=== PATIENT | female | born 1945 | race Caucasian/White ===

== ENCOUNTER 2019-02-18 15:25 | Outpatient (CLI) | payer MEDICARE ==
--- NOTE | 2019-02-19 21:25 | EKG ---
Test Reason : Blood Pressure : / mmHG Vent. Rate : 054 BPM Atrial Rate : 054 BPM P-R Int : 160 ms QRS Dur : 112 ms QT Int : 458 ms P-R-T Axes : 069 -29 066 degrees QTc Int : 434 ms Sinus bradycardia Minimal voltage criteria for LVH, may be normal variant Borderline ECG When compared with ECG of 19-MAY-2014 15:18, Nonspecific T wave abnormality no longer evident in Inferior leads T wave inversion no longer evident in Anterolateral leads Confirmed by Rosy REECE ([id number]) on 02/19/2019 9:25:33 PM Referred By: JEFFRY Confirmed By:Rosy REECE
== END 2019-02-18 15:26 | disposition home or self-care (01) ==
LOC: LABBT 15:25
PROVIDERS: ATTEND Obstetrics & Gynecology
DX: Z01.818 Encounter for other preprocedural examination (principal); N90.7 Vulvar cyst
CPT/HCPCS: 93005; 93010

== ENCOUNTER 2019-02-23 09:51 | Day surgery (SDC) | payer MEDICARE ==
[2019-02-18 15:39] VITALS: BMI 29.4
[2019-02-18 16:44] LABS: Hemoglobin 11.9 g/dL (12.0-16.0); Mean Corpuscular Hemoglobin 27.6 pg (27.0-31.0); Mean Corpuscular Volume 88.8 fL (78.0-98.0); Mean Platelet Volume 8.9 fL (7.4-10.4); Platelet Count 179 thou/uL (130-400); RBC Distribution Width 12.9 % (11.5-14.5); Red Blood Cell (RBC) Count 4.33 mill/uL (4.20-5.40); White Blood Cell (WBC) Count 6.9 thou/uL (4.8-10.8)
--- NOTE | 2019-02-23 07:42 | HP ---
REASON FOR ADMISSION: Multiple right labial sebaceous cysts with history of pain and ulceration. SCHEDULED PROCEDURE: Partial vulvectomy. HISTORY OF PRESENT ILLNESS: Ms. White is a 73-year-old, G2, P2, status post hysterectomy, who presented on referral from Dr. Luis Felipe zepeda in January. She is active and rides horses and was having a problem with chronic pain, enlargement and ulceration of her right labia minora. On exam, she was noted to have multiple sebaceous cysts with swelling and hypertrophy associated with chronic irritation on the right. We discussed options for management including changing clothing and activities. The patient is very active in horseback rider and does not desire to make significant changes and desires to proceed with surgical reduction. CINDER PITMAN HISTORY: As noted. No history of STDs. 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 SURGICAL HISTORY: Significant for gastric bypass, total knees, cholecystectomy, left breast removal and reconstruction with breast cancer. ALLERGIES: NONE. MEDICATIONS: 1. Amlodipine. 2. . 3. Furosemide. 4. Hydralazine. 5. Isordil. 6. Lisinopril. 7. Pravastatin. SOCIAL HISTORY: Denies tobacco, alcohol, or IV drug use. FAMILY HISTORY: Noncontributory. REVIEW OF SYSTEMS: Noncontributory. PHYSICAL EXAMINATION: GENERAL: White female, 5 feet 5 inches, weight 178, BMI 29, blood pressure 120/74, pulse 61, respirations 18. HEENT: Within normal limits. LUNGS: Clear to auscultation bilaterally. HEART: Regular rate and rhythm. ABDOMEN: Soft and nontender without rebound or guarding. VULVA: The patient has no sores or erosions at this time. She does have tenderness, swelling, and hypertrophy of sebaceous cyst enlarging the right labia minora to approximately 2 times the size of the one on the left. Vaginally, there are no ulcers. Her cuff is well supported and bimanual exam is unremarkable. IMPRESSION: Right labial hypertrophy secondary to chronic irritation and sebaceous cyst without ulceration at this time. PLAN: We will proceed with the reduction of labioplasty/partial vulvectomy. The patient understands risks and benefits of procedure including bleeding, infection, wound breakdown, and recurrence of sebaceous cyst. We will administer appropriate antibiotic and DVT prophylaxis. Anticipate outpatient nature of surgery. Job ID: [id number]
[2019-02-23] MEDS ORDERED: Gabapentin 300 MG CAP ONE (10:19)
[2019-02-23] MEDS ORDERED: Famotidine/PF 20 mg/2ml Vial ONE (10:20)
[2019-02-23] MEDS ORDERED: PROPOFOL 200 MG/20 ML VIAL ONE (10:47)
[2019-02-23] MEDS ORDERED: Lidocaine 1% PF 5 ML VIAL ONE (10:47)
[2019-02-23] MEDS ORDERED: Ondansetron PF 4 MG/2 ML Vial ONE (10:47)
[2019-02-23] MEDS ORDERED: CeleCOXIB 100 MG CAP ONE (10:53)
[2019-02-23] MEDS ORDERED: Bupivacaine HCl 0.5%/Epinephrine 1:200,000/PF 30 ml Vial ONE (12:16)
[2019-02-23] MEDS ORDERED: Lidocaine 1% w/Epinephrine 1:100K 20 ML VIAL ONE (12:18)
[2019-02-23] MEDS ORDERED: Fentanyl 100 MCG/2 ML VIAL ONE ×2 (12:19→13:45)
[2019-02-23] MEDS ORDERED: Bacitracin Zinc Ointment 30 gm TUBE ONE (13:05)
[2019-02-23] MEDS ORDERED: HYDROcodone/Acetaminophen 5/325 mg Tablet ONE ×2 (14:36→15:54)
--- NOTE | 2019-02-24 08:34 | OP ---
DATE OF PROCEDURE: 02/23/2019 PREOPERATIVE DIAGNOSES: Hypertrophy with history of ulceration and sebaceous cyst of right labia minora. POSTOPERATIVE DIAGNOSES: Hypertrophy with history of ulceration and sebaceous cyst of right labia minora. PROCEDURE PERFORMED: Partial right vulvectomy. ANESTHESIA: Laryngeal mask airway. ANESTHESIOLOGIST: Hilton Alaniz CRNA. ESTIMATED BLOOD LOSS: Less than 10 mL. MEDICATIONS: 2 g Ancef preincision. DVT PROPHYLAXIS: SCDs. OPERATIVE FINDINGS: 1. Persistent hypertrophy of the right labia minora, approximately two times greater size than left labia minora. 2. Sebaceous cyst noted in the hypertrophied aspect of labia minora. 3. Hemostasis with good cosmetic result and reduction postoperatively. DISPOSITION: Recovery room in good condition. DESCRIPTION OF PROCEDURE: After obtaining appropriate informed consent, the patient was taken to the operating room, where LMA airway was achieved without difficulty. The patient was prepped and draped in dorsal lithotomy position in Christopher stirrups. Bladder was drained of clear urine. The labia were inspected and findings as noted in the operative findings were noted. The area for excision was marked with a skin marker and infiltrated at this level using approximately 5 mL of lidocaine with epinephrine 1%. Using a 15 blade, the area was excised in its entirety and sent for pathologic analysis. No persistent areas of sebaceous cyst were appreciated in the remaining tissue. The deep dermal layer was reapproximated using running continuous 3-0 Monocryl suture and then the skin was reapproximated using a 4-0 Monocryl subcuticular stitch. Good hemostasis was noted and bacitracin ointment was applied. The patient was awakened, extubated, and taken to recovery room in good condition. She will be followed up at [facility] as scheduled. Job ID: [id number]
== END 2019-02-23 16:20 | disposition home or self-care (01) ==
LOC: SDC 09:51
PROVIDERS: ATTEND Obstetrics & Gynecology
PROC: 0UBMXZZ Excision of Vulva, External Approach (ICD-10-PCS; principal; 2019-02-23)
DX: N90.7 Vulvar cyst (principal); N90.60 Unspecified hypertrophy of vulva; I10 Essential (primary) hypertension; D64.9 Anemia, unspecified; M19.90 Unspecified osteoarthritis, unspecified site; I25.2 Old myocardial infarction; Z79.899 Other long term (current) drug therapy
CPT/HCPCS: 85027; 86850; 86900; 86901; 88305; J0670; J0690; J2001; J2405; J2704; J3010; S0028

== ENCOUNTER 2020-10-28 10:44 | Emergency (ER) | payer MEDICARE ==
[2020-10-28] MEDS ORDERED: Fentanyl 100 MCG/2 ML VIAL ONE ×3 (11:09→15:08)
[2020-10-28 11:27] LABS: #Basophils 0.1 thou/uL (0.0-0.2); #Eosinphils 0.2 thou/uL (0.0-0.7); #Monocytes 0.7 thou/uL (0.11-0.59); #Neutrophils 4.5 thou/uL (1.40-6.50); %Basophils 1.8 % (0.0-1.0); %Eosinophils 3.3 % (0.0-10.0); %Lymphocytes 26.3 % (21.0-51.0); %Monocytes 8.9 % (0.0-10.0); %Neutrophils 59.8 % (42.0-75.0); Mean Corpuscular HGB CONC 31.9 g/dL (32.0-36.0); Mean Corpuscular Hemoglobin 28.4 pg (27.0-31.0); Mean Corpuscular Volume 88.9 fL (78.0-98.0); Mean Platelet Volume 8.3 fL (7.4-10.4); Platelet Count 203 thou/uL (130-400); RBC Distribution Width 13.7 % (11.5-14.5); Red Blood Cell (RBC) Count 4.21 mill/uL (4.20-5.40); White Blood Cell (WBC) Count 7.5 thou/uL (4.8-10.8)
[2020-10-28 11:34] LABS: INR-International Normal Ratio 1.1; PTT 31.1 sec (22.9-36.1); Prothrombin Time 14.6 sec (12.0-14.7)
[2020-10-28 11:47] LABS: ALT (SGPT) Less than 7 U/L (8-55); AST (SGOT) 22 U/L (5-34); Albumin 4.3 g/dL (3.4-4.8); Alkaline Phosphatase 102 U/L (40-110); Anion Gap 16 mmol/L (10-20); BUN (Urea Nitrogen) 24 mg/dL (9.8-20.1); Bilirubin, Total 0.4 mg/dL (0.2-1.2); Calc. Creatinine Clearance 0 mL/min (70-130); Calcium 10.3 mg/dL (7.8-10.44); Carbon Dioxide 21 mmol/L (23-31); Chloride 105 mmol/L (98-107); Glucose 112 mg/dL (83-110); Potassium 4.6 mmol/L (3.5-5.1); Protein, Total 7.3 g/dL (5.8-8.1); Sodium 137 mmol/L (136-145)
[2020-10-28] MEDS ORDERED: Ondansetron PF 4 MG/2 ML Vial ONE (11:53)
[2020-10-28] MEDS ORDERED: PROPOFOL 20 ML ONE (12:02)
[2020-10-28] MEDS ORDERED: Ketamine 50 MG/ML (10ML VIAL) ONE (12:02)
--- NOTE | 2020-10-28 12:05 | CT ---
CT Chest WO Con History: Fall Comparison: None. Findings: Mild scarring in the lung apices. There are also mild left basilar pleural-parenchymal scar ring. Left humeral neck fracture is present with mild impaction. Large left glenohumeral joint effusion wit h indwelling debris. Vessels of the pre of the right glenohumeral joint. Right rotator cuff insufficiency. The sternum and manubrium are intact. No clavicular fracture. Indwelling dorsal column stimulator. No acute thoracic spine fracture. Old right anterior second rib fracture. Old right anterior third rib fracture. Old right anterior fou rth rib fracture. Old right anterior fifth rib fracture. No acute right-sided rib fracture. Old injury to the right anterior inferior costochondral junctions. Old left anterior third rib fracture. Old left anterior fourth rib fracture. Old left posterior 11th rib fracture. No acute displaced left rib fracture. Postsurgical changes along the left anterior chest wall. High-grade vascular calcifications. Multiple hypodensities of both kidneys, incompletely evaluated, with left-sided hypodensities measuring greater than fluid attenuation. Aortic contour is nonaneurysmal. Heart size is enlarged. No significant pericardial effusion. Impression: 1. Fracture through the left humeral surgical neck. 2. No acute thoracic spine fracture. 3. Old bilateral rib fractures without acute displaced rib fracture appreciated. No pneumothorax. 4. Bilateral renal hypodensities for which nonemergent follow-up renal ultrasound recommended. 5. 4-5 mm solid nodule anterior segment right upper lobe axial image 14 along with tear of 5 mm nodul es within the right middle lobe are unchanged from 2004 and benign
--- NOTE | 2020-10-28 12:27 | RAD ---
LEFT SHOULDER 2 VIEWS: HISTORY: Fall. FINDINGS: The bones are demineralized. There is a humeral head and neck fracture present. The humerus is also at least inferiorly subluxed. IMPRESSION: Comminuted humeral head and neck fracture with anterior subluxation/dislocation. POS: GAURAV
--- NOTE | 2020-10-28 12:29 | CT ---
CT OF BRAIN PERFORMED WITHOUT CONTRAST ENHANCEMENT: HISTORY: Fall with head injury. FINDINGS: There is mild generalized ventricular and sulcal prominence. Decreased attenuation of the periventri cular white matter suggestive of some chronic white matter change. 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 No hemorrhage or mass effect. IMPRESSION: No acute intracranial abnormalities. POS: GAURAV
[2020-10-28] MEDS ORDERED: Lorazepam 2 MG/ML VIAL ONE (12:30)
--- NOTE | 2020-10-28 12:30 | CT ---
CT OF CERVICAL SPINE PERFORMED WITHOUT CONTRAST ENHANCEMENT: HISTORY: Fall with neck pain. FINDINGS: The bones appear demineralized. Vertebral bodies maintain normal height. There is moderate disk betsy rowing at the C6-7 level. The facets are in normal alignment. There is right-sided foraminal narrow ing which is moderate at the C3-4 level. Mild left-sided foraminal narrowing at C4-5 and bilateral f oraminal stenosis at C5-6, slightly greater on the right. The canal shows some mild narrowing at C6- 7. There is mild bilateral foraminal narrowing. There is no CT evidence for a fracture. The lung a pices are clear of infiltrates. IMPRESSION: No CT evidence of fracture of the cervical spine. POS: GAURAV
--- NOTE | 2020-10-28 12:43 | RAD ---
XR Shoulder Lt 2 View History: Postreduction Comparison: Radiograph same day Findings: Improved alignment of the humeral subluxation. The surgical neck fracture is again seen. Impression: Improved postreduction alignment.
[2020-10-28] MEDS ORDERED: Norepinephrine 8 MG/0.9% NS 250 ML ONE ×2 (15:39→16:06)
[2020-10-28] MEDS ORDERED: Norepinephrine 4 MG/4 ML VIAL ONE (16:06)
== END 2020-10-28 17:07 | disposition home or self-care (01) ==
LOC: ERS 10:44
DX: S06.0X9A Concussion with loss of consciousness of unspecified duration, initial encounter (principal); S42.212A Unspecified displaced fracture of surgical neck of left humerus, initial encounter for closed fracture; I10 Essential (primary) hypertension; W00.0XXA Fall on same level due to ice and snow, initial encounter; Z79.01 Long term (current) use of anticoagulants
CPT/HCPCS: 23605; 70450; 71250; 72125; 80053; 85025; 85610; 85730; 93005; 96374; 96375; 96376; 99152; J2060; J2405; J2704; J3010

== ENCOUNTER 2020-11-20 15:53 | Inpatient (IN) | payer MEDICARE ==
[2020-11-20] MEDS ORDERED: Ondansetron PF 4 MG/2 ML Vial ONE (16:43)
[2020-11-20 16:50] LABS: INR-International Normal Ratio 1.6; Prothrombin Time 19.5 sec (12.0-14.7)
[2020-11-20 16:51] LABS: PTT 29.7 sec (22.9-36.1)
[2020-11-20 16:53] LABS: #Basophils 0.1 thou/uL (0.0-0.2); #Lymphocytes 2.5 thou/uL (1.20-3.40); #Monocytes 0.5 thou/uL (0.11-0.59); #Neutrophils 9.8 thou/uL (1.40-6.50); %Basophils 0.5 % (0.0-1.0); %Eosinophils 0.2 % (0.0-10.0); %Lymphocytes 19.2 % (21.0-51.0); %Monocytes 3.7 % (0.0-10.0); %Neutrophils 76.5 % (42.0-75.0); Hemoglobin 4.2 g/dL (12.0-16.0); Mean Corpuscular HGB CONC 32.6 g/dL (32.0-36.0); Mean Corpuscular Hemoglobin 30.5 pg (27.0-31.0); Mean Corpuscular Volume 93.7 fL (78.0-98.0); Mean Platelet Volume 8.3 fL (7.4-10.4); Platelet Count 184 thou/uL (130-400); RBC Distribution Width 16.1 % (11.5-14.5); Red Blood Cell (RBC) Count 1.38 mill/uL (4.20-5.40); White Blood Cell (WBC) Count 12.8 thou/uL (4.8-10.8)
[2020-11-20] MEDS ORDERED: Fentanyl 100 MCG/2 ML VIAL ONE ×2 (16:57→17:40)
[2020-11-20 17:06] LABS: ALT (SGPT) Less than 7 U/L (8-55); AST (SGOT) 12 U/L (5-34); Albumin 2.8 g/dL (3.4-4.8); Alkaline Phosphatase 66 U/L (40-110); Anion Gap 11 mmol/L (10-20); BUN (Urea Nitrogen) 54 mg/dL (9.8-20.1); Bilirubin, Total 0.2 mg/dL (0.2-1.2); Calc. Creatinine Clearance 0 mL/min (70-130); Calcium 8.6 mg/dL (7.8-10.44); Carbon Dioxide 16 mmol/L (23-31); Chloride 117 mmol/L (98-107); Globulin 1.6 g/dL (2.4-3.5); Glucose 108 mg/dL (83-110); Lipase 27 U/L (8-78); Potassium 3.6 mmol/L (3.5-5.1); Protein, Total 4.4 g/dL (5.8-8.1); Sodium 140 mmol/L (136-145)
[2020-11-20] MEDS ORDERED: Lorazepam 2 MG/ML VIAL ONE (17:45)
[2020-11-20 17:52] LABS: Anisocytosis MODERATE=16-30 cells (100X) (0-5/hpf); Hypochromia MODERATE=16-30 cells (100X) (0-5/hpf); MDiff Complete? YES; Platelet Morphology Comment Appears Adequate; Reflex for Review?? YES
[2020-11-20 19:14] LABS: Bacteria/HPF None Seen HPF (None Seen); Bilirubin Negative (Negative); Blood, Urine Negative (Negative); Clarity Clear (Clear); Glucose, Urine (Dipstick) Normal (Negative); Ketone, Urine Negative (Negative); Leukocyte 250 Leu/uL (Negative); Nitrite Negative (Negative); Protein, Urine (Dipstick) Negative (Neg-Trace); RBC/HPF 0-3 HPF (0-3); Specific Gravity, Urine 1.017 (1.002-1.036); Squamous Epithelial 0-3 HPF (0-3); Urobilinogen Normal mg/dL (Less than 2); pH, Urine 5.5 (5.0-9.0)
[2020-11-20] MEDS ORDERED: Ondansetron PF 4 MG/2 ML Vial IVP PRN (20:49)
[2020-11-20] MEDS ORDERED: Ondansetron ODT 4 MG TAB PO PRN (20:49)
[2020-11-20] MEDS ORDERED: Morphine 2 MG/ML VIAL SLOW IVP SCH (21:30)
[2020-11-20] MEDS ORDERED: Pantoprazole 40 MG VIAL IVP SCH (21:45)
[2020-11-20] MEDS: Azithromycin 500 MG in Sodium Chloride 0.9% 250 ML 250 ML IVPB SCH (23:03)
[2020-11-20] MEDS: cefTRIAXone\\ROCEPHIN 1 GM in Sodium Chloride 0.9% 100 ML IVPB SCH (23:04)
[2020-11-20 23:21] LABS: Hemoglobin 6.6 g/dL (12.0-16.0)
[2020-11-21] MEDS: Acetaminophen 500 MG TAB PO PRN ×2 (00:14→08:32)
[2020-11-21] MEDS: Morphine 2 MG/ML VIAL SLOW IVP PRN ×4 (02:53→21:48)
[2020-11-21 06:13] LABS: #Eosinphils 0.2 thou/uL (0.0-0.7); #Lymphocytes 2.2 thou/uL (1.20-3.40); #Monocytes 0.7 thou/uL (0.11-0.59); #Neutrophils 7.1 thou/uL (1.40-6.50); %Basophils 0.4 % (0.0-1.0); %Eosinophils 1.9 % (0.0-10.0); %Lymphocytes 21.7 % (21.0-51.0); %Neutrophils 69.1 % (42.0-75.0); Mean Corpuscular HGB CONC 34.1 g/dL (32.0-36.0); Mean Corpuscular Hemoglobin 30.8 pg (27.0-31.0); Mean Corpuscular Volume 90.2 fL (78.0-98.0); Mean Platelet Volume 7.9 fL (7.4-10.4); Platelet Count 138 thou/uL (130-400); RBC Distribution Width 14.1 % (11.5-14.5); Red Blood Cell (RBC) Count 2.28 mill/uL (4.20-5.40); White Blood Cell (WBC) Count 10.2 thou/uL (4.8-10.8)
[2020-11-21 06:19] LABS: Anion Gap 6 mmol/L (10-20); BUN (Urea Nitrogen) 44 mg/dL (9.8-20.1); Calc. Creatinine Clearance 85 mL/min (70-130); Calcium 8.7 mg/dL (7.8-10.44); Carbon Dioxide 19 mmol/L (23-31); Chloride 120 mmol/L (98-107); Glucose 92 mg/dL (83-110); Potassium 3.4 mmol/L (3.5-5.1); Sodium 142 mmol/L (136-145)
[2020-11-21] MEDS ORDERED: Lidocaine 1% PF 5 ML VIAL ONE (08:41)
[2020-11-21] MEDS ORDERED: PROPOFOL 200 MG/20 ML VIAL ONE (08:41)
[2020-11-21 08:57] LABS: SARS-CoV-2 PCR by NAA Not Detected (NotDetected)
[2020-11-21] MEDS ORDERED: Pantoprazole 40 MG VIAL IVP SCH (09:00)
[2020-11-21] MEDS ORDERED: FLU VACC QS2020-21(65YR UP)/PF 240 MCG/0.7 ML SYRINGE IM ONE (09:00)
[2020-11-21] MEDS ORDERED: HYDROcodone/Acetaminophen 10/325 mg Tablet PO PRN (09:57)
[2020-11-21] MEDS: Pantoprazole 40 MG VIAL IVP SCH ×2 (10:15→21:48)
[2020-11-21] MEDS: Lidocaine 5% Patch TD SCH (10:15)
[2020-11-21 10:28] LABS: Hemoglobin 7.1 g/dL (12.0-16.0)
[2020-11-21] MEDS: hydrALAZINE 20 MG/ML VIAL SLOW IVP PRN ×2 (13:25→17:03)
[2020-11-21] MEDS ORDERED: Fentanyl 100 MCG/2 ML VIAL ONE (19:25)
[2020-11-21] MEDS ORDERED: Midazolam HCl 2 mg/2 ml Vial ONE (19:25)
[2020-11-21] MEDS ORDERED: Promethazine HCl 25 MG/ML VIAL SLOW IVP PRN (19:57)
[2020-11-21] MEDS ORDERED: Promethazine HCl 25 MG/ML VIAL IM PRN (19:57)
[2020-11-21] MEDS ORDERED: Ondansetron HCl/PF 4 MG/2 ML Vial IVP PRN (19:57)
[2020-11-21] MEDS ORDERED: Ondansetron PF 4 MG/2 ML Vial ONE (20:02)
[2020-11-21] MEDS: Lisinopril 20 MG TAB PO SCH (21:47)
[2020-11-21] MEDS: cloNIDine 0.1 MG TAB PO SCH (21:47)
[2020-11-21] MEDS: Flecainide 50 MG TAB PO SCH (21:47)
[2020-11-21] MEDS: cefTRIAXone\\ROCEPHIN 1 GM in Sodium Chloride 0.9% 100 ML IVPB SCH (21:48)
[2020-11-21] MEDS: Azithromycin 500 MG in Sodium Chloride 0.9% 250 ML 250 ML IVPB SCH (21:49)
[2020-11-21] MEDS ORDERED: ALPRAZolam 0.25 MG TAB PO SCH (22:15)
[2020-11-22] MEDS: Morphine 2 MG/ML VIAL SLOW IVP PRN ×3 (02:42→22:08)
[2020-11-22 05:33] LABS: Hemoglobin 6.6 g/dL (12.0-16.0); Mean Corpuscular HGB CONC 33.6 g/dL (32.0-36.0); Mean Corpuscular Hemoglobin 30.4 pg (27.0-31.0); Mean Corpuscular Volume 90.6 fL (78.0-98.0); Mean Platelet Volume 8.1 fL (7.4-10.4); Platelet Count 147 thou/uL (130-400); RBC Distribution Width 14.8 % (11.5-14.5); Red Blood Cell (RBC) Count 2.17 mill/uL (4.20-5.40); White Blood Cell (WBC) Count 18.4 thou/uL (4.8-10.8)
[2020-11-22 05:37] LABS: Anion Gap 11 mmol/L (10-20); BUN (Urea Nitrogen) 25 mg/dL (9.8-20.1); Calc. Creatinine Clearance 89 mL/min (70-130); Calcium 8.7 mg/dL (7.8-10.44); Carbon Dioxide 16 mmol/L (23-31); Chloride 119 mmol/L (98-107); Glucose 124 mg/dL (83-110); Potassium 3.6 mmol/L (3.5-5.1); Sodium 142 mmol/L (136-145)
[2020-11-22 06:07] LABS: Band 13 % (5-11); Lymphocytes 3 % (21-51); MDiff Complete? YES; Monocytes 2 % (0-10); Neutrophil 82 % (42-75)
[2020-11-22] MEDS ORDERED: CYANOCOBALAMIN 5000 MCG SL SCH (09:00)
[2020-11-22] MEDS ORDERED: [UNRECOGNIZED DRUG - OTHER] SL SCH (09:00)
[2020-11-22] MEDS: Lisinopril 20 MG TAB PO SCH ×2 (09:18→22:17)
[2020-11-22] MEDS: Calcium Carbonate 500 MG ChewTAB PO SCH (09:18)
[2020-11-22] MEDS: Flecainide 50 MG TAB PO SCH ×2 (09:18→22:18)
[2020-11-22] MEDS: Pantoprazole 40 MG VIAL IVP SCH ×2 (09:18→22:15)
[2020-11-22] MEDS: Cyanocobalamin (Vitamin B-12) 1,000 MCG TAB PO SCH (09:18)
[2020-11-22] MEDS: Lidocaine 5% Patch TD SCH (09:19)
[2020-11-22] MEDS: Acetaminophen 500 MG TAB PO PRN ×2 (11:14→17:20)
[2020-11-22] MEDS: hydrALAZINE 20 MG/ML VIAL SLOW IVP PRN (17:20)
[2020-11-22] MEDS ORDERED: Melatonin 3 MG TAB PO SCH (22:00)
[2020-11-22] MEDS: cefTRIAXone\\ROCEPHIN 1 GM in Sodium Chloride 0.9% 100 ML IVPB SCH (22:14)
[2020-11-22] MEDS ORDERED: diphenhydrAMINE 25 MG CAP PO SCH (22:15)
[2020-11-22] MEDS: cloNIDine 0.1 MG TAB PO SCH (22:17)
[2020-11-22] MEDS: Azithromycin 500 MG in Sodium Chloride 0.9% 250 ML 250 ML IVPB SCH (22:18)
[2020-11-23] MEDS: Acetaminophen 500 MG TAB PO PRN ×3 (02:52→21:18)
[2020-11-23] MEDS: Morphine 2 MG/ML VIAL SLOW IVP PRN ×3 (02:52→15:44)
[2020-11-23] MEDS: hydrALAZINE 20 MG/ML VIAL SLOW IVP PRN (03:06)
[2020-11-23 03:52] LABS: #Eosinphils 0.7 thou/uL (0.0-0.7); #Lymphocytes 1.1 thou/uL (1.20-3.40); #Monocytes 0.8 thou/uL (0.11-0.59); #Neutrophils 15.6 thou/uL (1.40-6.50); %Basophils 0.2 % (0.0-1.0); %Eosinophils 3.7 % (0.0-10.0); %Lymphocytes 5.9 % (21.0-51.0); %Monocytes 4.5 % (0.0-10.0); %Neutrophils 85.7 % (42.0-75.0); Mean Corpuscular HGB CONC 34.6 g/dL (32.0-36.0); Mean Corpuscular Volume 89.6 fL (78.0-98.0); Mean Platelet Volume 8.5 fL (7.4-10.4); Platelet Count 158 thou/uL (130-400); RBC Distribution Width 15.1 % (11.5-14.5); Red Blood Cell (RBC) Count 2.56 mill/uL (4.20-5.40); White Blood Cell (WBC) Count 18.2 thou/uL (4.8-10.8)
[2020-11-23 04:05] LABS: Anion Gap 12 mmol/L (10-20); BUN (Urea Nitrogen) 17 mg/dL (9.8-20.1); Calc. Creatinine Clearance 95 mL/min (70-130); Calcium 8.8 mg/dL (7.8-10.44); Carbon Dioxide 17 mmol/L (23-31); Chloride 113 mmol/L (98-107); Glucose 114 mg/dL (83-110); Potassium 3.4 mmol/L (3.5-5.1); Sodium 139 mmol/L (136-145)
[2020-11-23] MEDS: Calcium Carbonate 500 MG ChewTAB PO SCH (08:37)
[2020-11-23] MEDS: Flecainide 50 MG TAB PO SCH ×2 (08:37→21:20)
[2020-11-23] MEDS: Lisinopril 20 MG TAB PO SCH ×2 (08:37→21:19)
[2020-11-23] MEDS: Lidocaine 5% Patch TD SCH (08:38)
[2020-11-23] MEDS: Pantoprazole 40 MG VIAL IVP SCH ×2 (08:38→21:21)
[2020-11-23] MEDS ORDERED: Potassium Chloride 20 MEQ TAB PO SCH (09:45)
[2020-11-23] MEDS: HYDROcodone/Acetaminophen 10/325 mg Tablet PO PRN (21:17)
[2020-11-23] MEDS: cloNIDine 0.1 MG TAB PO SCH (21:19)
[2020-11-23] MEDS: cefTRIAXone\\ROCEPHIN 1 GM in Sodium Chloride 0.9% 100 ML IVPB SCH (21:20)
[2020-11-23] MEDS: Azithromycin 500 MG in Sodium Chloride 0.9% 250 ML 250 ML IVPB SCH (23:19)
[2020-11-24] MEDS ORDERED: Metoprolol Tartrate 5 MG/5 ML VIAL ONE (02:03)
[2020-11-24] MEDS ORDERED: Metoprolol Tartrate 5 MG/5 ML VIAL IVP PRN (02:08)
[2020-11-24] MEDS ORDERED: Metoprolol Tartrate 5 MG/5 ML VIAL IVP SCH (02:15)
[2020-11-24] MEDS ORDERED: Diltiazem HCl 125 MG, Admixture Fee 1 EACH in Sodium Chloride 0.9% 100 ML IVPB PRN (03:19)
[2020-11-24 03:32] LABS: #Basophils 0.1 thou/uL (0.0-0.2); #Eosinphils 0.7 thou/uL (0.0-0.7); #Lymphocytes 1.1 thou/uL (1.20-3.40); #Neutrophils 12.9 thou/uL (1.40-6.50); %Basophils 0.3 % (0.0-1.0); %Eosinophils 4.5 % (0.0-10.0); %Lymphocytes 7.1 % (21.0-51.0); %Monocytes 6.1 % (0.0-10.0); %Neutrophils 81.9 % (42.0-75.0); Hemoglobin 7.5 g/dL (12.0-16.0); Mean Corpuscular HGB CONC 33.8 g/dL (32.0-36.0); Mean Corpuscular Hemoglobin 31.1 pg (27.0-31.0); Platelet Count 167 thou/uL (130-400); Red Blood Cell (RBC) Count 2.41 mill/uL (4.20-5.40); White Blood Cell (WBC) Count 15.7 thou/uL (4.8-10.8)
[2020-11-24 03:54] LABS: Anion Gap 10 mmol/L (10-20); Anion Gap 9 mmol/L (10-20); BUN (Urea Nitrogen) 13 mg/dL (9.8-20.1); Calc. Creatinine Clearance 101 mL/min (70-130); Calcium 8.8 mg/dL (7.8-10.44); Calcium 8.9 mg/dL (7.8-10.44); Carbon Dioxide 21 mmol/L (23-31); Chloride 112 mmol/L (98-107); Glucose 101 mg/dL (83-110); Glucose 103 mg/dL (83-110); Magnesium 1.9 mg/dL (1.6-2.6); Potassium 3.8 mmol/L (3.5-5.1); Sodium 138 mmol/L (136-145); Sodium 139 mmol/L (136-145)
[2020-11-24 03:58] LABS: Troponin I 0.036 ng/mL (< 0.028)
[2020-11-24] MEDS: Morphine 2 MG/ML VIAL SLOW IVP PRN ×3 (04:31→20:03)
[2020-11-24] MEDS: Calcium Carbonate 500 MG ChewTAB PO SCH (08:50)
[2020-11-24] MEDS: Pantoprazole 40 MG VIAL IVP SCH ×2 (08:50→20:05)
[2020-11-24] MEDS: Lidocaine 5% Patch TD SCH (08:50)
[2020-11-24] MEDS: Flecainide 50 MG TAB PO SCH ×2 (08:51→20:05)
[2020-11-24] MEDS: Lisinopril 20 MG TAB PO SCH ×2 (08:51→20:05)
[2020-11-24] MEDS: Cyanocobalamin (Vitamin B-12) 1,000 MCG TAB PO SCH (09:42)
[2020-11-24] MEDS ORDERED: Furosemide 40 MG/4 ML VIAL SLOW IVP SCH (09:45)
[2020-11-24] MEDS: Atenolol 50 MG TAB PO SCH (09:55)
[2020-11-24] MEDS: HYDROcodone/Acetaminophen 10/325 mg Tablet PO PRN ×2 (12:02→23:25)
[2020-11-24] MEDS: Furosemide 40 MG/4 ML VIAL SLOW IVP SCH (15:19)
[2020-11-24] MEDS: cloNIDine 0.1 MG TAB PO SCH (20:05)
[2020-11-24] MEDS: cefTRIAXone\\ROCEPHIN 1 GM in Sodium Chloride 0.9% 100 ML IVPB SCH (22:01)
[2020-11-24] MEDS: Acetaminophen 500 MG TAB PO PRN (23:25)
[2020-11-24] MEDS: Azithromycin 500 MG in Sodium Chloride 0.9% 250 ML 250 ML IVPB SCH (23:26)
[2020-11-25] MEDS: Morphine 2 MG/ML VIAL SLOW IVP PRN ×3 (00:30→20:51)
[2020-11-25 04:38] LABS: #Basophils 0.1 thou/uL (0.0-0.2); #Eosinphils 0.7 thou/uL (0.0-0.7); #Lymphocytes 1.3 thou/uL (1.20-3.40); #Monocytes 0.8 thou/uL (0.11-0.59); #Neutrophils 9.7 thou/uL (1.40-6.50); %Basophils 0.4 % (0.0-1.0); %Eosinophils 5.8 % (0.0-10.0); %Lymphocytes 10.1 % (21.0-51.0); %Monocytes 6.2 % (0.0-10.0); %Neutrophils 77.5 % (42.0-75.0); Hemoglobin 7.1 g/dL (12.0-16.0); Mean Corpuscular HGB CONC 32.1 g/dL (32.0-36.0); Mean Corpuscular Volume 93.5 fL (78.0-98.0); Mean Platelet Volume 8.6 fL (7.4-10.4); Platelet Count 202 thou/uL (130-400); RBC Distribution Width 15.5 % (11.5-14.5); Red Blood Cell (RBC) Count 2.38 mill/uL (4.20-5.40); White Blood Cell (WBC) Count 12.5 thou/uL (4.8-10.8)
[2020-11-25 05:02] LABS: Anion Gap 9 mmol/L (10-20); BUN (Urea Nitrogen) 15 mg/dL (9.8-20.1); Calc. Creatinine Clearance 90 mL/min (70-130); Calcium 8.3 mg/dL (7.8-10.44); Carbon Dioxide 25 mmol/L (23-31); Chloride 107 mmol/L (98-107); Glucose 104 mg/dL (83-110); Magnesium 1.7 mg/dL (1.6-2.6); Potassium 3.5 mmol/L (3.5-5.1); Sodium 137 mmol/L (136-145)
[2020-11-25] MEDS: Furosemide 40 MG/4 ML VIAL SLOW IVP SCH ×2 (05:27→14:22)
[2020-11-25] MEDS: Flecainide 50 MG TAB PO SCH ×2 (09:41→20:58)
[2020-11-25] MEDS: Calcium Carbonate 500 MG ChewTAB PO SCH (09:41)
[2020-11-25] MEDS: Lisinopril 20 MG TAB PO SCH ×2 (09:41→21:09)
[2020-11-25] MEDS: Atenolol 50 MG TAB PO SCH (09:41)
[2020-11-25] MEDS: Lidocaine 5% Patch TD SCH (09:42)
[2020-11-25] MEDS: Pantoprazole 40 MG VIAL IVP SCH ×2 (09:42→20:51)
[2020-11-25] MEDS ORDERED: Bisacodyl 10 MG SUPP PR PRN (17:03)
[2020-11-25] MEDS: cloNIDine 0.1 MG TAB PO SCH (20:57)
[2020-11-25] MEDS: Cefdinir 300 MG CAP PO SCH (20:57)
[2020-11-25] MEDS: Senokot S 8.6-50 MG TAB PO SCH (20:57)
[2020-11-25] MEDS: Acetaminophen 500 MG TAB PO PRN (21:09)
[2020-11-26] MEDS: Morphine 2 MG/ML VIAL SLOW IVP PRN ×4 (01:14→21:21)
[2020-11-26] MEDS: Furosemide 40 MG/4 ML VIAL SLOW IVP SCH ×2 (06:50→15:35)
[2020-11-26 08:26] LABS: #Eosinphils 0.6 thou/uL (0.0-0.7); #Lymphocytes 1.1 thou/uL (1.20-3.40); #Neutrophils 7.5 thou/uL (1.40-6.50); %Basophils 0.5 % (0.0-1.0); %Eosinophils 5.6 % (0.0-10.0); %Lymphocytes 10.3 % (21.0-51.0); %Neutrophils 73.6 % (42.0-75.0); Hemoglobin 8.1 g/dL (12.0-16.0); Mean Corpuscular HGB CONC 32.1 g/dL (32.0-36.0); Mean Corpuscular Volume 93.2 fL (78.0-98.0); Mean Platelet Volume 8.2 fL (7.4-10.4); Platelet Count 265 thou/uL (130-400); RBC Distribution Width 14.7 % (11.5-14.5); White Blood Cell (WBC) Count 10.1 thou/uL (4.8-10.8)
[2020-11-26 08:49] LABS: Anion Gap 12 mmol/L (10-20); BUN (Urea Nitrogen) 14 mg/dL (9.8-20.1); Calc. Creatinine Clearance 93 mL/min (70-130); Calcium 8.8 mg/dL (7.8-10.44); Carbon Dioxide 27 mmol/L (23-31); Chloride 102 mmol/L (98-107); Glucose 104 mg/dL (83-110); Potassium 3.8 mmol/L (3.5-5.1); Sodium 137 mmol/L (136-145)
[2020-11-26] MEDS: Polyethylene Glycol 3350 17 GM Packet PO SCH (09:04)
[2020-11-26] MEDS: Senokot S 8.6-50 MG TAB PO SCH ×2 (09:04→21:33)
[2020-11-26] MEDS: Cefdinir 300 MG CAP PO SCH ×2 (09:06→21:33)
[2020-11-26] MEDS: Atenolol 50 MG TAB PO SCH (09:07)
[2020-11-26] MEDS: Flecainide 50 MG TAB PO SCH ×2 (09:08→21:33)
[2020-11-26] MEDS: Lisinopril 20 MG TAB PO SCH ×2 (09:08→21:33)
[2020-11-26] MEDS: Pantoprazole 40 MG VIAL IVP SCH ×2 (09:10→21:34)
[2020-11-26] MEDS: Lidocaine 5% Patch TD SCH (09:15)
[2020-11-26] MEDS: Calcium Carbonate 500 MG ChewTAB PO SCH (11:26)
[2020-11-26] MEDS: cloNIDine 0.1 MG TAB PO SCH (21:33)
[2020-11-26] MEDS: Acetaminophen 500 MG TAB PO PRN (21:33)
[2020-11-27] MEDS: Acetaminophen 500 MG TAB PO PRN ×2 (03:53→22:07)
[2020-11-27] MEDS: Morphine 2 MG/ML VIAL SLOW IVP PRN (03:57)
[2020-11-27] MEDS: Furosemide 40 MG/4 ML VIAL SLOW IVP SCH (06:16)
[2020-11-27] MEDS: Senokot S 8.6-50 MG TAB PO SCH ×2 (08:27→22:06)
[2020-11-27] MEDS: Cefdinir 300 MG CAP PO SCH ×2 (08:27→22:06)
[2020-11-27] MEDS: Polyethylene Glycol 3350 17 GM Packet PO SCH (08:27)
[2020-11-27] MEDS: Pantoprazole 40 MG VIAL IVP SCH (08:27)
[2020-11-27] MEDS: Flecainide 50 MG TAB PO SCH ×2 (08:28→22:06)
[2020-11-27] MEDS: Calcium Carbonate 500 MG ChewTAB PO SCH (08:28)
[2020-11-27] MEDS: Furosemide 40 MG TAB PO SCH (08:28)
[2020-11-27] MEDS: Cyanocobalamin (Vitamin B-12) 1,000 MCG TAB PO SCH (08:28)
[2020-11-27] MEDS: Lisinopril 20 MG TAB PO SCH ×2 (08:28→22:06)
[2020-11-27] MEDS: Atenolol 50 MG TAB PO SCH (08:28)
[2020-11-27] MEDS: Lidocaine 5% Patch TD SCH (08:29)
[2020-11-27 08:54] LABS: #Basophils 0.1 thou/uL (0.0-0.2); #Eosinphils 0.4 thou/uL (0.0-0.7); #Lymphocytes 1.1 thou/uL (1.20-3.40); #Neutrophils 5.7 thou/uL (1.40-6.50); %Basophils 0.7 % (0.0-1.0); %Eosinophils 5.2 % (0.0-10.0); %Lymphocytes 13.3 % (21.0-51.0); %Monocytes 11.9 % (0.0-10.0); %Neutrophils 68.9 % (42.0-75.0); Hemoglobin 8.2 g/dL (12.0-16.0); Mean Corpuscular HGB CONC 33.1 g/dL (32.0-36.0); Mean Corpuscular Volume 93.7 fL (78.0-98.0); Mean Platelet Volume 7.9 fL (7.4-10.4); Platelet Count 318 thou/uL (130-400); RBC Distribution Width 14.6 % (11.5-14.5); Red Blood Cell (RBC) Count 2.65 mill/uL (4.20-5.40); White Blood Cell (WBC) Count 8.3 thou/uL (4.8-10.8)
[2020-11-27 09:19] LABS: Anion Gap 15 mmol/L (10-20); BUN (Urea Nitrogen) 15 mg/dL (9.8-20.1); Calc. Creatinine Clearance 82 mL/min (70-130); Calcium 9.1 mg/dL (7.8-10.44); Carbon Dioxide 31 mmol/L (23-31); Chloride 97 mmol/L (98-107); Glucose 197 mg/dL (83-110); Potassium 3.5 mmol/L (3.5-5.1); Sodium 139 mmol/L (136-145)
[2020-11-27] MEDS: HYDROcodone/Acetaminophen 10/325 mg Tablet PO PRN ×2 (09:46→17:53)
[2020-11-27] MEDS: cloNIDine 0.1 MG TAB PO SCH (22:05)
[2020-11-27] MEDS: Pregabalin 25 MG CAP PO SCH (22:06)
[2020-11-28 01:34] LABS: #Basophils 0.1 thou/uL (0.0-0.2); #Eosinphils 0.4 thou/uL (0.0-0.7); #Lymphocytes 1.4 thou/uL (1.20-3.40); #Neutrophils 5.4 thou/uL (1.40-6.50); %Eosinophils 4.3 % (0.0-10.0); %Lymphocytes 17.4 % (21.0-51.0); %Monocytes 11.9 % (0.0-10.0); %Neutrophils 65.4 % (42.0-75.0); Hemoglobin 7.1 g/dL (12.0-16.0); Mean Corpuscular HGB CONC 32.2 g/dL (32.0-36.0); Mean Corpuscular Volume 93.1 fL (78.0-98.0); Mean Platelet Volume 7.4 fL (7.4-10.4); Platelet Count 327 thou/uL (130-400); RBC Distribution Width 14.6 % (11.5-14.5); Red Blood Cell (RBC) Count 2.38 mill/uL (4.20-5.40); White Blood Cell (WBC) Count 8.3 thou/uL (4.8-10.8)
[2020-11-28 01:41] LABS: Lactic Acid 0.6 mmol/L (0.5-2.2)
[2020-11-28 01:46] LABS: Anion Gap 11 mmol/L (10-20); BUN (Urea Nitrogen) 18 mg/dL (9.8-20.1); Calc. Creatinine Clearance 84 mL/min (70-130); Calcium 8.6 mg/dL (7.8-10.44); Carbon Dioxide 32 mmol/L (23-31); Chloride 96 mmol/L (98-107); Glucose 98 mg/dL (83-110); Magnesium 1.8 mg/dL (1.6-2.6); Potassium 3.4 mmol/L (3.5-5.1); Sodium 136 mmol/L (136-145); Uric Acid 9.3 mg/dL (2.6-6.0)
[2020-11-28] MEDS ORDERED: Ibuprofen 200 MG TAB PO SCH (02:45)
[2020-11-28] MEDS ORDERED: Magnesium 2 GM/50 ML 2 GM in Premix Bag 1 BAG IVPB SCH (02:45)
[2020-11-28] MEDS ORDERED: Potassium Chloride 20 MEQ TAB PO SCH (02:45)
[2020-11-28] MEDS: Morphine 2 MG/ML VIAL SLOW IVP PRN ×2 (03:42→14:39)
[2020-11-28] MEDS: Calcium Carbonate 500 MG ChewTAB PO SCH (08:15)
[2020-11-28] MEDS: Lisinopril 20 MG TAB PO SCH ×2 (08:16→20:25)
[2020-11-28] MEDS: Cefdinir 300 MG CAP PO SCH ×2 (08:16→20:24)
[2020-11-28] MEDS: Senokot S 8.6-50 MG TAB PO SCH ×2 (08:16→20:24)
[2020-11-28] MEDS: Flecainide 50 MG TAB PO SCH ×2 (08:17→20:24)
[2020-11-28] MEDS: Furosemide 40 MG TAB PO SCH (08:17)
[2020-11-28] MEDS: Pregabalin 25 MG CAP PO SCH ×2 (08:17→20:24)
[2020-11-28] MEDS: Atenolol 50 MG TAB PO SCH (08:17)
[2020-11-28] MEDS: Polyethylene Glycol 3350 17 GM Packet PO SCH (08:18)
[2020-11-28] MEDS: HYDROcodone/Acetaminophen 10/325 mg Tablet PO PRN ×2 (08:31→18:11)
[2020-11-28] MEDS: Lidocaine 5% Patch TD SCH (08:31)
[2020-11-28] MEDS ORDERED: Colchicine 0.6 MG TAB PO SCH (10:45)
[2020-11-28 16:39] LABS: Hemoglobin 7.6 g/dL (12.0-16.0)
[2020-11-28] MEDS: cloNIDine 0.1 MG TAB PO SCH (20:25)
[2020-11-28] MEDS ORDERED: GoLYTELY 4,000 ml Bottle PO SCH (20:45)
[2020-11-29] MEDS: Morphine 2 MG/ML VIAL SLOW IVP PRN (00:12)
[2020-11-29 06:23] LABS: #Basophils 0.1 thou/uL (0.0-0.2); #Eosinphils 0.3 thou/uL (0.0-0.7); #Lymphocytes 1.5 thou/uL (1.20-3.40); #Monocytes 0.9 thou/uL (0.11-0.59); #Neutrophils 4.7 thou/uL (1.40-6.50); %Basophils 0.8 % (0.0-1.0); %Eosinophils 3.7 % (0.0-10.0); %Lymphocytes 19.6 % (21.0-51.0); %Monocytes 12.3 % (0.0-10.0); %Neutrophils 63.6 % (42.0-75.0); Hemoglobin 7.3 g/dL (12.0-16.0); Mean Corpuscular HGB CONC 33.7 g/dL (32.0-36.0); Mean Corpuscular Hemoglobin 30.8 pg (27.0-31.0); Mean Corpuscular Volume 91.3 fL (78.0-98.0); Mean Platelet Volume 7.6 fL (7.4-10.4); Platelet Count 400 thou/uL (130-400); RBC Distribution Width 14.8 % (11.5-14.5); Red Blood Cell (RBC) Count 2.37 mill/uL (4.20-5.40); White Blood Cell (WBC) Count 7.4 thou/uL (4.8-10.8)
[2020-11-29 06:48] LABS: Anion Gap 13 mmol/L (10-20); BUN (Urea Nitrogen) 16 mg/dL (9.8-20.1); Calc. Creatinine Clearance 80 mL/min (70-130); Calcium 8.7 mg/dL (7.8-10.44); Carbon Dioxide 31 mmol/L (23-31); Chloride 94 mmol/L (98-107); Glucose 96 mg/dL (83-110); Potassium 4.4 mmol/L (3.5-5.1); Sodium 134 mmol/L (136-145)
[2020-11-29] MEDS ORDERED: PROPOFOL 200 MG/20 ML VIAL ONE (11:37)
[2020-11-29] MEDS: Polyethylene Glycol 3350 17 GM Packet PO SCH (12:53)
[2020-11-29] MEDS: Senokot S 8.6-50 MG TAB PO SCH ×2 (12:53→21:37)
[2020-11-29] MEDS: Cyanocobalamin (Vitamin B-12) 1,000 MCG TAB PO SCH (13:01)
[2020-11-29] MEDS: Colchicine 0.6 MG TAB PO SCH ×2 (13:01→21:24)
[2020-11-29] MEDS: Lisinopril 20 MG TAB PO SCH ×2 (13:02→21:25)
[2020-11-29] MEDS: Calcium Carbonate 500 MG ChewTAB PO SCH (13:03)
[2020-11-29] MEDS: Atenolol 50 MG TAB PO SCH (13:03)
[2020-11-29] MEDS: Cefdinir 300 MG CAP PO SCH ×2 (13:04→21:24)
[2020-11-29] MEDS: Pregabalin 25 MG CAP PO SCH ×2 (13:04→21:23)
[2020-11-29] MEDS: Lidocaine 5% Patch TD SCH (13:05)
[2020-11-29] MEDS: Flecainide 50 MG TAB PO SCH ×2 (13:05→21:25)
[2020-11-29] MEDS: Furosemide 40 MG TAB PO SCH (13:05)
[2020-11-29] MEDS: HYDROcodone/Acetaminophen 10/325 mg Tablet PO PRN ×2 (14:00→21:26)
[2020-11-29] MEDS: Acetaminophen 500 MG TAB PO PRN (17:43)
[2020-11-29] MEDS: cloNIDine 0.1 MG TAB PO SCH (21:25)
[2020-11-30] MEDS: Acetaminophen 500 MG TAB PO PRN (04:48)
[2020-11-30] MEDS: Furosemide 40 MG TAB PO SCH (06:36)
[2020-11-30 07:59] VITALS: BP 149/69; TEMP 97.7
[2020-11-30] MEDS: Pregabalin 25 MG CAP PO SCH (11:02)
[2020-11-30] MEDS: Cefdinir 300 MG CAP PO SCH (11:02)
[2020-11-30] MEDS: Flecainide 50 MG TAB PO SCH (11:02)
[2020-11-30] MEDS: HYDROcodone/Acetaminophen 10/325 mg Tablet PO PRN (11:03)
[2020-11-30] MEDS: Colchicine 0.6 MG TAB PO SCH (11:03)
[2020-11-30] MEDS: Atenolol 50 MG TAB PO SCH (11:04)
[2020-11-30] MEDS: Lidocaine 5% Patch TD SCH (11:04)
[2020-11-30] MEDS: Lisinopril 20 MG TAB PO SCH (11:04)
[2020-11-30] MEDS: Calcium Carbonate 500 MG ChewTAB PO SCH (11:04)
[2020-11-30] MEDS: Senokot S 8.6-50 MG TAB PO SCH (11:05)
[2020-11-30] MEDS: Polyethylene Glycol 3350 17 GM Packet PO SCH (11:05)
== END 2020-11-30 14:56 | disposition home health service (06) | DRG 377 ==
LOC: ERS 15:53 → IMCU/EMU 18:53 → 2SE 11-25 16:38
PROVIDERS: ADMIT Student in an Organized Health Care Education/Training Program; ATTEND Internal Medicine
PROC: 30233N1 Transfusion of Nonautologous Red Blood Cells into Peripheral Vein, Percutaneous Approach (ICD-10-PCS; principal; 2020-11-20)
PROC: 0DJ08ZZ Inspection of Upper Intestinal Tract, Via Natural or Artificial Opening Endoscopic (ICD-10-PCS; 2020-11-21)
PROC: 0DJD8ZZ Inspection of Lower Intestinal Tract, Via Natural or Artificial Opening Endoscopic (ICD-10-PCS; 2020-11-29)
DX: K92.1 Melena (principal); A41.9 Sepsis, unspecified organism; J18.9 Pneumonia, unspecified organism; R57.8 Other shock; D62 Acute posthemorrhagic anemia; E87.2 Acidosis; Z20.822 Contact with and (suspected) exposure to COVID-19; I10 Essential (primary) hypertension; Z96.653 Presence of artificial knee joint, bilateral; I48.0 Paroxysmal atrial fibrillation; W19.XXXD Unspecified fall, subsequent encounter; K57.30 Diverticulosis of large intestine without perforation or abscess without bleeding; K64.8 Other hemorrhoids; Z79.01 Long term (current) use of anticoagulants; Z79.82 Long term (current) use of aspirin; Z79.899 Other long term (current) drug therapy; Z85.3 Personal history of malignant neoplasm of breast; Z90.710 Acquired absence of both cervix and uterus; Z90.49 Acquired absence of other specified parts of digestive tract; Z98.84 Bariatric surgery status; S42.212D Unspecified displaced fracture of surgical neck of left humerus, subsequent encounter for fracture with routine healing; S43.012D Anterior subluxation of left humerus, subsequent encounter
CPT/HCPCS: 36415; 36416; 36430; 36556; 70450; 71045; 80048; 82274; 83605; 83690; 83735; 83880; 84443; 84484; 84550; 85025; 85060; 85610; 85730; 86850; 86900; 86901; 87635; 93005; 93010; 93923; 96374; 96375; 96376; 99292; C9113; J0360; J0456; J0696; J1940; J2060; J2250; J2270; J2405; J2704; J3010; J3475; J3490; J7050; P9016; Q0163; U0003; U0005